=== PATIENT | female | born 1995 | race Caucasian/White ===

== ENCOUNTER 2016-09-27 19:20 | Emergency (ER) | payer OTHER ==
[2016-09-27 18:44] LABS: BASOPHIL% 0.2 % (0-2.5); EOSINOPHIL% 0.2 % (0.0-7.0); HEMATOCRIT 39.9 % (35.0-45.0); HEMOGLOBIN 12.5 gm/dL (12.0-16.0); LYMPHOCYTE# 0.6 X10e3 (1.0-3.5); LYMPHOCYTE% 4.4 % (17.0-45.0); MEAN CELL VOLUME 76.3 FL (83-96); MEAN CORPUSCULAR HEMOGLOBIN 23.9 PG (28-34); MEAN CORPUSCULAR HGB CONC 31.3 g/dL (30-36); MEAN PLATELET VOLUME 7.7 FL (6.5-11.5); MONOCYTE# 0.4 X10e3 (0-1.0); NEUTROPHIL# 12.6 X10e3 (1.5-7.1); NEUTROPHIL% 92.2 % (40-75); PLATELET COUNT 324 X10e3 (140-420); RED BLOOD COUNT 5.23 X10e (3.90-5.30); RED CELL DISTRIBUTION WIDTH 16.4 % (11.0-15.5); WHITE BLOOD COUNT 13.7 X10e3 (4.0-10.5)
[2016-09-27 18:45] LABS: DIFF IND NO
[2016-09-27 19:12] LABS: ALBUMIN SERUM 4.2 g/dL (3.5-5.0); ALKALINE PHOSPHATASE 32 U/L (32-92); ALT (SGPT) 18 U/L (10-40); AMYLASE 30 U/L (0-46); AST (SGOT) 26 U/L (10-42); BILIRUBIN, DIRECT 0.1 mg/dL (0.0-0.2); BILIRUBIN,INDIRECT 0.6 mg/dL (0.0-0.9); BILIRUBIN,TOTAL 0.7 mg/dL (0.2-2.0); BLOOD UREA NITROGEN 12 mg/dL (9-23); CALCIUM SERUM 8.5 mg/dL (8.4-10.2); CARBON DIOXIDE 26 mmol/L (22-31); CHLORIDE 108 mmol/L (100-111); CREATININE SERUM 0.6 mg/dL (0.6-1.4); GLOM FILT RATE Estimated ABOVE60 mL/min (>60); GLUCOSE FASTING 89 mg/dL (70-110); LIPASE 19 U/L (22-51); POTASSIUM 3.9 mmol/L (3.5-5.1); PROTEIN TOTAL SERUM 6.8 g/dL (6.0-8.3); SODIUM 137 mmol/L (135-145)
[~2016-09-27 19:20] MED LIST: BACTRIM DS TABL1 TA1 PO; BACTRIM DS TABL1 TA2 PO; FLEXERIL10 M1 PO; FLONASE16 GM; IBUPROFEN PO; KEFLEX500 M1 PO; MACROBID100 MG PO; MOTRIN400 MG PO; MOTRIN600 MG PO; NO MEDICATIONS; TAMIFLU75 MG PO
== END 2016-09-27 19:27 | disposition left against medical advice (07) ==
LOC: CED 19:20
PROVIDERS: Emergency Medicine
DX: Z53.21 Procedure and treatment not carried out due to patient leaving prior to being seen by health care provider (principal)
CPT/HCPCS: 80048; 80076; 82150; 83690; 85025